=== PATIENT | male | born 1970 | race Caucasian/White ===

== ENCOUNTER 2022-01-22 08:50 | Emergency (ER) | payer OTHER ==
[~2022-01-22] VITALS: Ht 165.1 cm; Wt 83.0 kg
[2022-01-22 09:10] VITALS: BP 122/67
--- NOTE | 2022-01-22 09:35 | PHYS DOC ---
Past History Past Surgical History: Other Additional Past Surgical Histo: L quad tendon repair Alcohol Use: None General Adult EDM: Chief Complaint: SHOULDER INJURY HPI: HPI: Patient is a 31-year-old male coming in for right shoulder pain. Patient states that he tripped while jogging last night and landed on his right shoulder, no other injuries. Denies any prior history of injury to his right shoulder. Is right-handed. Review of Systems: Review of Systems: All other systems within normal limits except for as noted in the HPI Allergies: Allergies: Allergies Coded Allergies Type Severity Reaction Last Updated Verified No Known Drug Allergies 01/22/22 No Physical Exam: PE: Constitutional: Well developed, well nourished, no acute distress, non-toxic appearance. [] HENT: Normocephalic, atraumatic, bilateral external ears normal, nose normal. [] Eyes: PERRLA, conjunctiva normal, no discharge. [] Neck: No rigidity, supple, no stridor. [] Cardiovascular: Regular rate and rhythm, brisk cap refill [] Lungs & Thorax: Non labored symmetric respirations, no tachypnea or respiratory distress [] Abdomen: Soft, nondistended. Skin: Warm, dry, no erythema, no rash. [] Back: Unremarkable Extremities: No deformities, range of motion grossly intact, no lower extremity edema. Right shoulder: Range of motion intact, tenderness on AC joint [] Neurologic: Alert and oriented X 3, no focal deficits noted. [] Psychologic: Affect normal, judgement normal, mood normal. [] Current Patient Data: Vital Signs: Vital Signs Date Time Temp Pulse Resp B/P (MAP) Pulse Ox O2 Delivery O2 Flow Rate FiO2 01/22/22 09:10 97.9 70 14 122/67 (85) 97 EKG: EKG: [] Radiology/Procedures: Radiology/Procedures: [address] [address] IMAGING REPORT Signed PATIENT: ADRIAN FELICIANO ACCOUNT: [id number] : 1970 LOCATION: ER AGE: 51 SEX: M EXAM STATUS: REG ER ORD. PHYSICIAN: ERIKA WYATT MD REASON: fall, pain PROCEDURE: SHOULDER 2+V RIGHT Exam: XR SHOULDER_RIGHT 2+ VIEWS History: Fall, pain. Comparison: None. Findings: Osseous mineralization is normal. No acute fracture or dislocaton. Mild degenerative changes of the acromioclavicular joint. The visualized lungs are clear. Impression: 1. No acute osseous abnormality of the right shoulder. Electronically signed by: Eben Collins MD (01/22/2022 9:54 AM) [id number] DICTATED AND SIGNED BY: EBEN COLLINS MD DATE: 01/22/2252 CC: ANTONY BONE DO; ERIKA WYATT MD ~ [] Heart Score: C/O Chest Pain: No Risk Factors: Risk Factors: DM, Current or recent (<one month) smoker, HTN, HLP, family history of CAD, obesity. Risk Scores: Score 0 - 3: 2.5% MACE over next 6 weeks - Discharge Home Score 4 - 6: 20.3% MACE over next 6 weeks - Admit for Clinical Observation Score 7 - 10: 72.7% MACE over next 6 weeks - Early Invasive Strategies Course & Med Decision Making: Course & Med Decision Making Pertinent Labs and Imaging studies reviewed. (See chart for details) [] Dragon Disclaimer: Dragon Disclaimer: This electronic medical record was generated, in whole or in part, using a voice recognition dictation system. Departure Departure: Impression: Primary Impression: Right shoulder injury Disposition: HOME / SELF CARE / HOMELESS Condition: STABLE Referrals: ANTONY BONE DO (PCP) Patient Instructions: RICE - Routine Care for Injuries ERIKA WYATT MD Jan 22, 2022 09:35
--- NOTE | 2022-01-22 09:56 | RAD ---
Exam: XR SHOULDER_RIGHT 2+ VIEWS History: Fall, pain. Comparison: None. Findings: Osseous mineralization is normal. No acute fracture or dislocaton. Mild degenerative changes of the a cromioclavicular joint. The visualized lungs are clear. Impression: 1. No acute osseous abnormality of the right shoulder. Electronically signed by: Eben Conley MD (01/22/2022 9:54 AM) [id number]
== END 2022-01-22 10:15 | disposition home or self-care (01) ==
LOC: ER 08:50
DX: S49.91XA Unspecified injury of right shoulder and upper arm, initial encounter (principal); W01.0XXA Fall on same level from slipping, tripping and stumbling without subsequent striking against object, initial encounter; Y93.89 Activity, other specified; Y92.89 Other specified places as the place of occurrence of the external cause; Y99.8 Other external cause status
CPT/HCPCS: 73030; 99283